=== PATIENT | male | born 1960 ===

== ENCOUNTER 2024-02-19 10:00 | Outpatient (RCR) | payer OTHER, SELFPAY ==
--- NOTE | 2023-12-11 15:07 | OTOPEVAL1 ---
Assessment and note entered by Dmitriy Freire, SAL/Andres, CHT Evaluation Information Assessment Status Evaluation Diagnosis Primary OA right and left hands ICD-10 Condition Codes (OT) M79.641,M79.642 Subjective Information Patient is right handed. He reports pain in the joints of his hands. He reports difficulties with gross gripping, carrying, and lifting. States he is unable to open a jar. He reports his hand pain fluctuates with activity, but there are times when his pain does get up to 10/10. Today his right hand is 0/10 and the left index finger is 2/10 on the pain scale. He has tried therapy for this recently - reports paraffin is too hot, shaffer his hands. Likes the fluidotherapy. He reports his MD asked if he's tried a TENs unit, which he has not . Quickdash 79.5% Reported Pain Level Pain Score 0,2: Self Report Additional Pain Score Comments Patient points to his PIP and DIP joints as the source of the pain. Assessment OT Clinical Summary Patient referred to OT with dx of bilateral hand OA. 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 He has been experiencing a decline in bilateral hand use due to the pain. Skilled OT indicated for use of modalities, joint protection techniques, therapeutic exercise, manual therapy, and HEP instruction and progression to facilitate optimal functional hand use and reduced pain. Plan of Care Interventions Therapeutic Exercise,Manual Therapy,Therapeutic Activities,Hot Pack/Cold Pack,Ultrasound,Paraffin Other Interventions Fluidotherapy OT Services Indicated Yes Treatment Frequency and 1x/week for 5 visits Duration These treatments will address the objective and functional deficits as defined above. The patient will be advanced safely and appropriately in order for the patient to progress towards his/her prior level of function. Additional exercises will be introduced and as well as a comprehensive home exercise program upon discharge, if needed, ?to ensure carryover of functional gains achieved in the clinic. This treatment plan has been reviewed and agreement upon by the patient.
--- NOTE | 2023-12-11 15:07 | OPREHPOC ---
Outpatient Therapy Plan of Care This is a Multidisciplinary Plan of Care that may contain components documented by all disciplines (PT, OT, and ST.) OT Problem 1 OT Problem #1 Knowledge Deficit OT Goal 1 Goal / Goal Update 1. Patient to be independent with instructed materials. Target Visit 5 OT Problem 2 OT Problem #2 Pain OT Goal 1 Goal / Goal Update 1. Patient to report reduced pain as measured by no instance of 10/10 pain. 1. Patient to report pain 2/10 or less with ADLs. Target Visit 5 OT Problem 3 OT Problem #3 Impaired Strength OT Goal 1 Goal / Goal Update 1. 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 Target Visit 5
--- NOTE | 2024-01-20 11:05 | OTOPPROG ---
Assessment and note entered by Dmitriy Freire, SAL/Andres, EFRAT OT Progress Update 01/20/24 Assessment Status Progress Diagnosis Primary OA right and left hands ICD-10 Condition Codes (OT) M79.641,M79.642 Subjective Information Patient has been participating in 5 OT sessions, 1x/week due to patient driving over an hour to our clinic. He reports he is feeling a little better pain-toribio. He continues to experience pain on a daily basis, regularly reporting 1-3/10 on the pain scale. At the start of care his pain was regularly getting up to 10/10 and he reports this is happening less. Experiencing 7/10 at worst in the last week. He reports continued difficulties with gross gripping, carrying, and lifting. States he is unable to open a jar. He reports his hand pain fluctuates with activity. We have trialed a TENs unit and this increased his hand pain. We have focused on utilizing moist heat, massage, joint mobilization, vibration, compression gloves, and therapeutic exercise. ROM of bilateral hands: Flexion of the fingers is WFL. He is able to make a full fist. Hook fist is 0.5-1 cm away from the DPC. No change in ROM since the start of care. 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 (L) operator automated process improved from 32 to 39 lbs. Quickdash improved from 79.5% to 65.9% Assessment OT Clinical Summary Patient referred to OT with dx of bilateral hand OA. He is making progress with therapy, noted by improved strength and reduced pain numbers. 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 Continued skilled OT indicated for use of modalities, joint protection techniques, therapeutic exercise, manual therapy, and HEP instruction and progression to facilitate optimal functional hand use and reduced pain. Plan of Care Interventions Therapeutic Exercise,Manual Therapy,Therapeutic Activities,Hot Pack/Cold Pack,Ultrasound,Paraffin Other Interventions Fluidotherapy OT Services Indicated Yes Treatment Frequency and 1x/week for 4 visits Duration These treatments will address the objective and functional deficits as defined above. The patient will be advanced safely and appropriately in order for the patient to progress towards his/her prior level of function. Additional exercises will be introduced and as well as a comprehensive home exercise program upon discharge, if needed, ?to ensure carryover of functional gains achieved in the clinic. This treatment plan has been reviewed and agreement upon by the patient.
--- NOTE | 2024-01-20 11:06 | OPREHPOC ---
Outpatient Therapy Plan of Care This is a Multidisciplinary Plan of Care that may contain components documented by all disciplines (PT, OT, and ST.) OT Problem 1 OT Problem #1 Knowledge Deficit OT Goal 1 Goal / Goal Update 1. Patient to be independent with instructed materials. ---OT POC UPDATE 01/20/24--- 1. Met, continue as HEP is progressed Target Visit 9 OT Problem 2 OT Problem #2 Pain OT Goal 1 Goal / Goal Update 1. Patient to report reduced pain as measured by no instance of 10/10 pain. 1. Patient to report pain 2/10 or less with ADLs. ---OT POC UPDATE 01/20/24--- 1. Met, continue to monitor 2. Inconsistently met, continue to treat pain Target Visit 9 OT Problem 3 OT Problem #3 Impaired Strength OT Goal 1 Goal / Goal Update 1. 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 ---OT POC UPDATE 01/20/24--- 1. Not met, continue progressive strengthening Target Visit 9
--- NOTE | 2024-02-19 12:06 | OTOPDC ---
Assessment and note entered by Dmitriy Freire, OTR/L, HERNAN OT D/C Summary 02/19/24 Assessment Status Discharge Diagnosis Primary OA right and left hands ICD-10 Condition Codes (OT) Pain in right hand M79.641,Pain in left hand M79. 642 Subjective Information Patient has been participating in 9 OT sessions, 1x/week due to patient driving over an hour to our clinic. He reports his pain actually is feeling worse. He continues to experience pain on a daily basis, regularly reporting 3-4/10 on the pain scale. He reports stiffness in the morning and he has a hard time getting his fingers bending. In the last week he has experienced 10/10 pains twice . He reports continued difficulties with gross gripping, carrying, and lifting. States he is unable to open a jar. He reports his hand pain fluctuates with activity. We have focused on utilizing moist heat, massage, joint mobilization, vibration, compression gloves, and therapeutic exercise. ROM: Gross flexion of the all fingers is WFL. Crepitus noted with active ROM. Hook fist is 0.5-1 cm away from the DPC on the left hand. 2-3 cm gap on the right hand. 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 (L) it senior analyst improved from 39 to 44 lbs. Assessment OT Clinical Summary Patient referred to OT with dx of bilateral hand OA. Patient responds well to heat, manual tx, and use of vibration to his arthritic joints, however the relief is short lived. His ROM is WFL. 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 He has increased pain when using the light resistive putty for strengthening. Had a lengthy discussion about non- medication pain management, which involves heat and use of vibration. He intermittently wears compression gloves. He unfortunately is unable to attend therapy 2x/week due to the amount he travels to get to our clinic. Discussed finding a clinic closer that provides red light therapy to trial. At this time we are discharging with HEP. Plan of Care OT Services Indicated No
== END 2024-02-19 14:20 | disposition home or self-care (01) ==
LOC: ANHOT 10:00
DX: M19.041 Primary osteoarthritis, right hand (principal); M19.042 Primary osteoarthritis, left hand
CPT/HCPCS: 97014; 97022; 97110; 97140; 97166; G0283